=== PATIENT | male | born 1960 | race Caucasian/White ===

== ENCOUNTER 2020-11-03 19:40 | Inpatient (IN) | payer BC, MEDICAID, OTHER, SELFPAY ==
[~2020-11-03 19:40] MED LIST: Iopamidol-370 76% 500 ML 1 ML ONE
[2020-11-03] MEDS ORDERED: Magnesium 2 GM/50 ML BAG (IN WATER) ONE (20:16)
[2020-11-03 21:07] LABS: Hemoglobin 14.8 g/dL (14.0-18.0); Mean Corpuscular HGB CONC 33.8 g/dL (32.0-36.0); Mean Corpuscular Hemoglobin 32.4 pg (27.0-31.0); RBC Distribution Width 14.5 % (11.5-14.5); Red Blood Cell (RBC) Count 4.57 mill/uL (4.70-6.10); White Blood Cell (WBC) Count 6.1 thou/uL (4.8-10.8)
[2020-11-03 21:24] LABS: ALT (SGPT) 11 U/L (8-55); AST (SGOT) 16 U/L (5-34); Albumin 3.4 g/dL (3.4-4.8); Alkaline Phosphatase 82 U/L (40-110); Anion Gap 15 mmol/L (10-20); BUN (Urea Nitrogen) 38 mg/dL (8.4-25.7); Bilirubin, Total 1.1 mg/dL (0.2-1.2); Calc. Creatinine Clearance 0 mL/min (70-130); Calcium 9.3 mg/dL (7.8-10.44); Carbon Dioxide 26 mmol/L (23-31); Chloride 96 mmol/L (98-107); Globulin 3.4 g/dL (2.4-3.5); Glucose 270 mg/dL (80-115); Potassium 4.3 mmol/L (3.5-5.1); Protein, Total 6.8 g/dL (5.8-8.1); Sodium 133 mmol/L (136-145)
[2020-11-03 21:36] LABS: #Lymphocytes 0.6 thou/uL (1.20-3.40); #Monocytes 0.6 thou/uL (0.11-0.59); #Neutrophils 4.9 thou/uL (1.40-6.50); %Basophils 0.2 % (0.0-1.0); %Eosinophils 0.2 % (0.0-10.0); %Lymphocytes 9.9 % (21.0-51.0); %Monocytes 9.1 % (0.0-10.0); %Neutrophils 80.7 % (42.0-75.0); Mean Platelet Volume 10.5 fL (7.4-10.4); Platelet Count 115 thou/uL (130-400)
[2020-11-03 21:37] LABS: Platelet Morphology Comment Appears Decreased
[2020-11-03 21:47] LABS: CKMB 1.6 ng/mL (0-6.6)
[2020-11-03] MEDS ORDERED: Amiodarone 150 MG/3 ML VIAL FS SCH (22:30)
[2020-11-03] MEDS ORDERED: Amiodarone 150 MG/3 ML VIAL IVP SCH (22:30)
[2020-11-03] MEDS ORDERED: Ondansetron PF 4 MG/2 ML Vial IVP PRN (23:44)
[2020-11-03] MEDS ORDERED: Dextrose 5% in Water 1,000 ML IV PRN (23:44)
[2020-11-03] MEDS ORDERED: Bisacodyl 10 MG SUPP PR PRN (23:44)
[2020-11-03] MEDS ORDERED: Dextrose 50% Abboject 50 ML SYRINGE SLOW IVP PRN (23:44)
[2020-11-03] MEDS ORDERED: HYDROcodone/Acetaminophen 7.5/325 mg Tablet PO PRN (23:44)
[2020-11-03] MEDS ORDERED: HumaLOG 300 UNITS/3 ML VIAL SC PRN (23:44)
[2020-11-03] MEDS ORDERED: Acetaminophen 325 MG TAB PO PRN (23:44)
[2020-11-03] MEDS ORDERED: Ivermectin 3 MG TAB PO SCH (23:45)
[2020-11-03] MEDS ORDERED: Metoprolol Tartrate 25 MG TAB PO SCH (23:45)
[2020-11-03] MEDS ORDERED: Enoxaparin Sodium 100 MG/ML SYRINGE ONE (23:56)
[2020-11-03] MEDS ORDERED: Enoxaparin Sodium 60 MG/0.6 ML SYRINGE ONE (23:56)
[2020-11-03] MEDS ORDERED: Dexamethasone 10 MG/ML VIAL ONE (23:56)
[2020-11-04] MEDS ORDERED: Metoprolol Tartrate 25 MG TAB ONE (01:14)
[2020-11-04] MEDS ORDERED: Metoprolol Tartrate 5 MG/5 ML VIAL ONE (01:19)
[2020-11-04 04:47] VITALS: BMI 41.9
[2020-11-04] MEDS: Sodium Chloride 0.9% 1,000 ML IV SCH ×4 (05:32→20:45)
[2020-11-04] MEDS: Amiodarone 450 MG, Admixture Fee 1 EACH in Dextrose 5% in Water 250 ML IVPB SCH ×2 (06:03→21:00)
[2020-11-04] MEDS: HumaLOG 300 UNITS/3 ML VIAL SC PRN ×3 (06:58→17:02)
[2020-11-04] MEDS ORDERED: Famotidine 20 MG TAB PO SCH (09:00)
[2020-11-04 09:46] LABS: #Lymphocytes 0.6 thou/uL (1.20-3.40); #Monocytes 0.3 thou/uL (0.11-0.59); #Neutrophils 3.5 thou/uL (1.40-6.50); %Basophils 0.2 % (0.0-1.0); %Eosinophils 0.3 % (0.0-10.0); %Lymphocytes 13.8 % (21.0-51.0); %Monocytes 5.7 % (0.0-10.0); Hemoglobin 14.8 g/dL (14.0-18.0); Mean Corpuscular HGB CONC 31.8 g/dL (32.0-36.0); Mean Corpuscular Hemoglobin 30.6 pg (27.0-31.0); Mean Corpuscular Volume 96.1 fL (78.0-98.0); Mean Platelet Volume 10.6 fL (7.4-10.4); Platelet Count 123 thou/uL (130-400); RBC Distribution Width 14.9 % (11.5-14.5); Red Blood Cell (RBC) Count 4.82 mill/uL (4.70-6.10); White Blood Cell (WBC) Count 4.3 thou/uL (4.8-10.8)
[2020-11-04] MEDS: Metoprolol Tartrate 25 MG TAB PO SCH ×2 (09:47→20:47)
[2020-11-04] MEDS: guaiFENesin ER 600 MG TAB PO SCH ×2 (09:51→20:47)
[2020-11-04] MEDS: Zinc Sulfate 220 MG CAP PO SCH (09:52)
[2020-11-04 10:02] LABS: Albumin 3.3 g/dL (3.4-4.8); Anion Gap 14 mmol/L (10-20); BUN (Urea Nitrogen) 45 mg/dL (8.4-25.7); BUN/Creatinine Ratio 23.32; CK (CPK) 68 U/L (30-200); Calc. Creatinine Clearance 83 mL/min (70-130); Calcium 9.5 mg/dL (7.8-10.44); Carbon Dioxide 24 mmol/L (23-31); Chloride 100 mmol/L (98-107); Glucose 313 mg/dL (80-115); Phosphorus 2.6 mg/dL (2.3-4.7); Potassium 4.8 mmol/L (3.5-5.1); Sodium 133 mmol/L (136-145)
[2020-11-04 10:03] LABS: Albumin 3.3 g/dL (3.4-4.8); Anion Gap 12 mmol/L (10-20); BUN (Urea Nitrogen) 42 mg/dL (8.4-25.7); Bilirubin, Total 0.8 mg/dL (0.2-1.2); Calc. Creatinine Clearance 81 mL/min (70-130); Calcium 9.1 mg/dL (7.8-10.44); Carbon Dioxide 26 mmol/L (23-31); Chloride 101 mmol/L (98-107); Globulin 2.7 g/dL (2.4-3.5); Glucose 300 mg/dL (80-115); Potassium 4.8 mmol/L (3.5-5.1); Sodium 134 mmol/L (136-145)
[2020-11-04 10:04] LABS: ALT (SGPT) 12 U/L (8-55); AST (SGOT) 15 U/L (5-34); Alkaline Phosphatase 87 U/L (40-110); Troponin I 0.107 ng/mL (< 0.028)
[2020-11-04] MEDS: Dexamethasone 1 MG TAB PO SCH ×2 (10:07→17:01)
[2020-11-04] MEDS: Enoxaparin Sodium 80 MG/0.8 ML SYRINGE SC SCH (20:47)
[2020-11-04] MEDS: Enoxaparin Sodium 60 MG/0.6 ML SYRINGE SC SCH (20:47)
[2020-11-04] MEDS ORDERED: Enoxaparin Sodium 120 MG/0.8 ML SYRINGE SC SCH (21:00)
[2020-11-05 00:14] LABS: Creatinine, Urine 135.58 mg/dL (63-166); Potassium, Urine 29.1 mmol/L
[2020-11-05] MEDS: Sodium Chloride 0.9% 1,000 ML IV SCH ×3 (02:40→19:20)
[2020-11-05 05:36] LABS: #Monocytes 0.7 thou/uL (0.11-0.59); #Neutrophils 7.9 thou/uL (1.40-6.50); %Basophils 0.1 % (0.0-1.0); %Eosinophils 0.1 % (0.0-10.0); %Lymphocytes 10.3 % (21.0-51.0); %Neutrophils 82.4 % (42.0-75.0); Hemoglobin 14.1 g/dL (14.0-18.0); Mean Corpuscular HGB CONC 33.3 g/dL (32.0-36.0); Mean Corpuscular Hemoglobin 32.2 pg (27.0-31.0); Mean Corpuscular Volume 96.7 fL (78.0-98.0); Mean Platelet Volume 10.4 fL (7.4-10.4); Platelet Count 129 thou/uL (130-400); RBC Distribution Width 14.7 % (11.5-14.5); Red Blood Cell (RBC) Count 4.37 mill/uL (4.70-6.10); White Blood Cell (WBC) Count 9.6 thou/uL (4.8-10.8)
[2020-11-05 06:01] LABS: Albumin 3.3 g/dL (3.4-4.8); Anion Gap 13 mmol/L (10-20); BUN (Urea Nitrogen) 38 mg/dL (8.4-25.7); BUN/Creatinine Ratio 25.17; Calc. Creatinine Clearance 106 mL/min (70-130); Calcium 9.5 mg/dL (7.8-10.44); Carbon Dioxide 23 mmol/L (23-31); Chloride 104 mmol/L (98-107); Glucose 247 mg/dL (80-115); Phosphorus 2.9 mg/dL (2.3-4.7); Potassium 5.1 mmol/L (3.5-5.1); Sodium 135 mmol/L (136-145); Uric Acid 10.7 mg/dL (3.5-7.2)
[2020-11-05] MEDS: HumaLOG 300 UNITS/3 ML VIAL SC PRN ×3 (06:43→17:35)
[2020-11-05] MEDS ORDERED: Senokot S 8.6-50 MG TAB PO PRN (07:23)
[2020-11-05] MEDS ORDERED: Loratadine 10 MG TAB PO PRN (07:23)
[2020-11-05] MEDS ORDERED: Hydrocerin (Eucerin) Cream 120 gm Jar TOP PRN (07:23)
[2020-11-05] MEDS ORDERED: HYDROcodone/Acetaminophen 5/325 mg Tablet PO PRN (07:23)
[2020-11-05] MEDS ORDERED: GUAIFENESIN SF SOLN 200 MG/10 ML UDCUP PO PRN (07:23)
[2020-11-05] MEDS ORDERED: Cepastat Lozenges 1 LOZ PO PRN (07:23)
[2020-11-05] MEDS ORDERED: Zolpidem Tartrate 5 MG TAB PO PRN (07:23)
[2020-11-05] MEDS ORDERED: hydrALAZINE 20 MG/ML VIAL SLOW IVP PRN (07:23)
[2020-11-05] MEDS ORDERED: Ondansetron ODT 4 MG TAB PO PRN (07:23)
[2020-11-05] MEDS ORDERED: cloNIDine 0.1 MG TAB PO PRN (07:23)
[2020-11-05] MEDS ORDERED: Calcium Carbonate 500 MG ChewTAB PO PRN (07:23)
[2020-11-05] MEDS ORDERED: Sodium Chloride 0.65% Nasal 44 ML BOT EA NARE PRN (07:23)
[2020-11-05] MEDS ORDERED: Loperamide HCl 2 MG CAP PO PRN (07:23)
[2020-11-05] MEDS ORDERED: Benzonatate 100 MG CAP PO PRN (07:23)
[2020-11-05] MEDS ORDERED: Artificial Tear Sol 15 ML BOT EA EYE PRN (07:23)
[2020-11-05] MEDS ORDERED: Albuterol Sulfate 2.5 mg/3 ml Neb NEB PRN (07:26)
[2020-11-05] MEDS ORDERED: Albuterol 200 PUFF (6.7GM INHALER) INH PRN (07:43)
[2020-11-05] MEDS: Zinc Sulfate 220 MG CAP PO SCH (07:56)
[2020-11-05] MEDS: Metoprolol Tartrate 25 MG TAB PO SCH ×2 (07:56→21:37)
[2020-11-05] MEDS: Enoxaparin Sodium 60 MG/0.6 ML SYRINGE SC SCH ×2 (07:57→21:36)
[2020-11-05] MEDS: Enoxaparin Sodium 80 MG/0.8 ML SYRINGE SC SCH ×2 (07:59→21:36)
[2020-11-05] MEDS ORDERED: Dexamethasone 1 MG TAB PO SCH (09:00)
[2020-11-05] MEDS: Amiodarone 450 MG, Admixture Fee 1 EACH in Dextrose 5% in Water 250 ML IVPB SCH (12:38)
[2020-11-05] MEDS: Ascorbic Acid 500 mg Chewable Tablet PO SCH (12:45)
[2020-11-05] MEDS: Cholecalciferol 1,000 UNITS (25 MCG) TAB PO SCH (12:45)
[2020-11-05] MEDS: Dexamethasone 4 MG TAB PO SCH (12:45)
[2020-11-05] MEDS: guaiFENesin ER 600 MG TAB PO SCH ×2 (13:05→21:37)
[2020-11-05] MEDS: NPH, Human Insulin Isophane 300 UNIT/3 ML VIAL SC SCH ×2 (13:58→21:37)
[2020-11-05] MEDS: Amiodarone 200 MG TAB PO SCH (21:36)
[2020-11-06] MEDS: Sodium Chloride 0.9% 1,000 ML IV SCH (02:52)
[2020-11-06 05:31] LABS: Hemoglobin 14.3 g/dL (14.0-18.0); Mean Corpuscular HGB CONC 32.7 g/dL (32.0-36.0); Mean Corpuscular Hemoglobin 31.6 pg (27.0-31.0); Mean Corpuscular Volume 96.5 fL (78.0-98.0); Platelet Count 146 thou/uL (130-400); RBC Distribution Width 14.7 % (11.5-14.5); Red Blood Cell (RBC) Count 4.53 mill/uL (4.70-6.10); White Blood Cell (WBC) Count 8.8 thou/uL (4.8-10.8)
[2020-11-06 06:10] LABS: ALT (SGPT) 13 U/L (8-55); AST (SGOT) 13 U/L (5-34); Albumin 3.3 g/dL (3.4-4.8); Alkaline Phosphatase 75 U/L (40-110); Anion Gap 9 mmol/L (10-20); BUN (Urea Nitrogen) 32 mg/dL (8.4-25.7); Bilirubin, Total 0.6 mg/dL (0.2-1.2); Calc. Creatinine Clearance 125 mL/min (70-130); Calcium 9.9 mg/dL (7.8-10.44); Carbon Dioxide 25 mmol/L (23-31); Chloride 106 mmol/L (98-107); Globulin 3.2 g/dL (2.4-3.5); Glucose 288 mg/dL (80-115); Magnesium 2.3 mg/dL (1.6-2.6); Phosphorus 2.1 mg/dL (2.3-4.7); Potassium 4.8 mmol/L (3.5-5.1); Protein, Total 6.5 g/dL (5.8-8.1); Sodium 135 mmol/L (136-145)
[2020-11-06 06:30] LABS: Band 16 % (5-11); Lymphocytes 14 % (21-51); MDiff Complete? YES; Monocytes 3 % (0-10); Neutrophil 67 % (42-75)
[2020-11-06] MEDS: HumaLOG 300 UNITS/3 ML VIAL SC PRN ×3 (06:30→17:31)
[2020-11-06] MEDS ORDERED: PHOS-NAK 1 PKT PACK PO SCH (07:15)
[2020-11-06] MEDS ORDERED: Apixaban 5 MG TAB PO SCH (09:00)
[2020-11-06] MEDS: Dexamethasone 4 MG TAB PO SCH (09:19)
[2020-11-06] MEDS: Zinc Sulfate 220 MG CAP PO SCH (09:20)
[2020-11-06] MEDS: Cholecalciferol 1,000 UNITS (25 MCG) TAB PO SCH (09:21)
[2020-11-06] MEDS: Ascorbic Acid 500 mg Chewable Tablet PO SCH (09:21)
[2020-11-06] MEDS: Amiodarone 200 MG TAB PO SCH (09:25)
[2020-11-06] MEDS: Metoprolol Tartrate 25 MG TAB PO SCH (09:27)
[2020-11-06] MEDS: guaiFENesin ER 600 MG TAB PO SCH (09:27)
[2020-11-06] MEDS: NPH, Human Insulin Isophane 300 UNIT/3 ML VIAL SC SCH (09:31)
[2020-11-06] MEDS ORDERED: Amlodipine 5 MG TAB PO SCH (12:00)
[2020-11-06 19:39] VITALS: BP 177/96; TEMP 98.1
[2020-11-07] MEDS ORDERED: Amlodipine 5 MG TAB PO SCH (09:00)
[2020-11-15] MEDS ORDERED: Amiodarone 200 MG TAB PO SCH (09:00)
== END 2020-11-06 19:53 | disposition home or self-care (01) | DRG 177 ==
LOC: ERS 19:40 → 2SW 23:44
PROVIDERS: ADMIT Internal Medicine; ATTEND Internal Medicine
PROC: 8E0ZXY6 Isolation (ICD-10-PCS; principal; 2020-11-03)
DX: U07.1 COVID-19 (principal); J12.82 Pneumonia due to coronavirus disease 2019; J96.01 Acute respiratory failure with hypoxia; N17.9 Acute kidney failure, unspecified; Z68.41 Body mass index [BMI] 40.0-44.9, adult; E87.1 Hypo-osmolality and hyponatremia; I10 Essential (primary) hypertension; E11.9 Type 2 diabetes mellitus without complications; G89.29 Other chronic pain; M54.9 Dorsalgia, unspecified; E66.01 Morbid (severe) obesity due to excess calories; E79.0 Hyperuricemia without signs of inflammatory arthritis and tophaceous disease; E86.0 Dehydration; I25.10 Atherosclerotic heart disease of native coronary artery without angina pectoris; I48.91 Unspecified atrial fibrillation; Z95.1 Presence of aortocoronary bypass graft; Z98.890 Other specified postprocedural states
CPT/HCPCS: 36415; 36416; 71275; 76770; 80053; 80069; 81003; 82550; 82553; 82570; 82728; 83735; 84100; 84133; 84156; 84300; 84484; 84540; 84550; 85025; 85379; 86140; 93005; 93306; 96365; 96366; 96372; 96375; J0282; J1100; J1650; J1815; J3475; J7050; J7070; J8540; Q9967